=== PATIENT | male | born 1980 | race Two or more races ===

== ENCOUNTER 2022-02-12 13:02 | Inpatient (IN) | payer MEDICAID, OTHER ==
[~2022-02-12] VITALS: Ht 162.6 cm; Wt 65.1 kg
[2022-02-12 14:14] LABS: Basophils # (auto) 0 10 ^3/uL (0-0.2); Basophils % (auto) 0.6 % (0.0-2.0); Eosinophils # (auto) 0 10 ^3/uL (0-0.8); Eosinophils % (auto) 0.3 % (0.0-7.0); Hematocrit 51.6 % (41.0-53.0); Hemoglobin 17.2 g/dL (13.5-17.5); Lymphocytes # (auto) 0.8 10 ^3/uL (0.4-5.4); Lymphocytes % (auto) 13.9 % (10.0-50.0); Mean Corpuscular Hemoglobin 28.9 pg (28.0-32.0); Mean Corpuscular Hgb Conc. 33.5 g/dL (32.0-36.0); Mean Corpuscular Volume 86.4 fL (80.0-100.0); Monocytes # (auto) 0.7 10 ^3/uL (0-1.3); Monocytes % (auto) 11.6 % (0.0-12.0); Neutrophils # (auto) 4.3 10 ^3/uL (1.6-8.6); Neutrophils % (auto) 73.6 % (37.0-80.0); Nucleated Red Blood Cells % 0.1 %; Red Blood Cells 5.97 10^6/uL (4.5-5.90); Red Cell Distribution Width 13.3 % (11.8-14.3); White Blood Cell 5.8 10^3/uL (4.4-10.8)
[2022-02-12 14:21] LABS: INR 0.99 (0.9-1.15); Partial Thromboplastin Time 30.7 sec (23.6-33.0)
[2022-02-12 14:40] LABS: Albumin 4.1 g/dL (3.4-5.0); BUN/Creatinine Ratio 14.3; Calcium 9.2 mg/dL (8.5-10.1); Potassium 3.9 mmol/L (3.5-5.1)
[2022-02-12 14:43] LABS: Bilirubin, Total 0.3 mg/dL (0.2-1.0)
[2022-02-12] MEDS ORDERED: AZITHROMYCIN 500MG/ 250ML 250 ML IV ONE (17:15)
[2022-02-12] MEDS ORDERED: DexAMETHasone SOD PHOS 10MG/1ML VIAL INJ IV ONE (17:15)
[2022-02-12] MEDS ORDERED: MORPHINE SULFATE INJ 2 MG/ml SYRG IV PRN ×3 (18:30→22:15)
[2022-02-12] MEDS ORDERED: NITROGLYCERIN 0.4 MG SL TAB SL PRN (18:30)
[2022-02-12] MEDS ORDERED: ONDANSETRON HCL 4 MG/2 ML VIAL IV PRN ×2 (18:30→22:15)
[2022-02-12 21:36] LABS: Urine Bacteria NONE SEEN /hpf (None Seen); Urine Blood Negative /uL (Negative); Urine Specific Gravity 1.021 (1.001-1.035); Urine WBC <1 /hpf (0 - 3)
[2022-02-12] MEDS ORDERED: ALBUTEROL SULF 2.5 MG/0.5ML(0.5%) NEB SOLN NEB PRN (22:15)
[2022-02-12] MEDS ORDERED: PROMETHAZINE-DM 5 ML ORAL SYRUP PO PRN (22:15)
[2022-02-12] MEDS ORDERED: hydrALAZINE HCL 20 MG/ML VL IV PRN (22:15)
[2022-02-12] MEDS ORDERED: ACETAMINOPHEN 325 MG TAB PO PRN (22:15)
[2022-02-12] MEDS ORDERED: HYDROcodone-ACET 5/325MG TAB PO PRN (22:15)
[2022-02-12] MEDS ORDERED: LORazepam 0.5 MG TAB PO PRN (22:15)
[2022-02-12] MEDS ORDERED: DOCUSATE SOD 100 MG CAP PO PRN (22:15)
[2022-02-12] MEDS ORDERED: ALBUTEROL SULF HFA 90MCG INH 200DOSE IN PRN (22:30)
[2022-02-12] MEDS: SODIUM CHLORIDE 0.9% 1,000 ML IV SCH (22:37)
[2022-02-12 23:54] LABS: Magnesium 2.2 mg/dL (1.6-2.6); Phosphorus 1.4 mg/dL (2.5-4.90)
[2022-02-13 00:37] LABS: INR 1.02 (0.9-1.15); Partial Thromboplastin Time 31.1 sec (23.6-33.0)
[2022-02-13 01:43] VITALS: BP 114/79
[2022-02-13 04:11] LABS: Urine Bacteria NONE SEEN /hpf (None Seen); Urine Blood Negative /uL (Negative); Urine Specific Gravity 1.031 (1.001-1.035); Urine WBC 1 /hpf (0 - 3)
[2022-02-13 04:12] LABS: Alcohol, Urine < 3.0 mg/dL (0-10); Amphetamine Screen, Urine NEGATIVE (NEGATIVE); Barbiturate Scree,Urine NEGATIVE (NEGATIVE); Benzodiazephine Screen, Urine NEGATIVE (NEGATIVE); Cannabinoid Screen, Urine NEGATIVE (NEGATIVE); Cocaine Screen, Urine NEGATIVE (NEGATIVE); Opiate Scree,Urine NEGATIVE (NEGATIVE); Phencyclidine Screen, Urine NEGATIVE (NEGATIVE); Protein, Urine 43.4 mg/dL (0.0-11.9)
[2022-02-13] MEDS ORDERED: POTASSIUM PHOSPHATE 44 MEQ in D5W 5% 250 ML IV ONE (04:45)
[2022-02-13 05:00] VITALS: BP 105/67
[2022-02-13 07:03] LABS: Basophils # (auto) 0 10 ^3/uL (0-0.2); Basophils % (auto) 0.1 % (0.0-2.0); Eosinophils # (auto) 0 10 ^3/uL (0-0.8); Hematocrit 47.8 % (41.0-53.0); Hemoglobin 16.5 g/dL (13.5-17.5); Lymphocytes # (auto) 0.6 10 ^3/uL (0.4-5.4); Lymphocytes % (auto) 6.5 % (10.0-50.0); Mean Corpuscular Hemoglobin 30.1 pg (28.0-32.0); Mean Corpuscular Hgb Conc. 34.6 g/dL (32.0-36.0); Mean Corpuscular Volume 87.2 fL (80.0-100.0); Monocytes # (auto) 0.3 10 ^3/uL (0-1.3); Monocytes % (auto) 2.9 % (0.0-12.0); Neutrophils % (auto) 90.5 % (37.0-80.0); Nucleated Red Blood Cells % 0.1 %; Red Blood Cells 5.48 10^6/uL (4.5-5.90); Red Cell Distribution Width 13.2 % (11.8-14.3)
[2022-02-13 07:20] LABS: White Blood Cell 8.8 10^3/uL (4.4-10.8)
[2022-02-13 07:27] LABS: INR 1.01 (0.9-1.15); Partial Thromboplastin Time 30.5 sec (23.6-33.0)
[2022-02-13 08:57] LABS: Albumin 3.5 g/dL (3.4-5.0); BUN/Creatinine Ratio 21.3; Bilirubin, Total 0.6 mg/dL (0.2-1.0); CRP High Sensitivity 0.61 mg/dL (< 0.3); Calcium 8.7 mg/dL (8.5-10.1); Phosphorus 2.4 mg/dL (2.5-4.90); Potassium 4.1 mmol/L (3.5-5.1); Total Protein 7.5 g/dL (6.4-8.2); Uric Acid 6.6 mg/dL (3.5-7.2)
[2022-02-13 09:00] VITALS: BP 134/72
[2022-02-13] MEDS ORDERED: ENOXAPARIN SOD 40 MG/0.4 ML SYRINGE SC SCH (10:00)
[2022-02-13] MEDS ORDERED: FAMOTIDINE (10MG/ML) 2ML VL IV SCH (10:00)
[2022-02-13] MEDS ORDERED: CHOLECALCIFEROL (VITD3) 2,000 UNIT CAP/TAB PO SCH (10:00)
[2022-02-13] MEDS ORDERED: CHOL1CAP47 PO (10:44)
[2022-02-13 13:00] VITALS: BP 134/87
[2022-02-13] MEDS: SODIUM CHLORIDE 0.9% 1,000 ML IV SCH (14:55)
== END 2022-02-13 15:24 | disposition home or self-care (01) | DRG 137 ==
LOC: ER 13:02 → TELE 18:27 → TELE-EAST 23:55
PROVIDERS: ADMIT Hospitalist; ATTEND Internal Medicine Pulmonary Disease
DX: U07.1 COVID-19 (principal); E83.39 Other disorders of phosphorus metabolism; E78.5 Hyperlipidemia, unspecified; I10 Essential (primary) hypertension; Z79.899 Other long term (current) drug therapy
CPT/HCPCS: 36415; 71045; 80053; 80061; 80307; 81001; 82550; 82728; 83036; 83615; 83690; 83735; 83880; 84100; 84156; 84300; 84439; 84443; 84484; 84550; 85025; 85379; 85610; 85652; 85730; 86141; 87040; 87086; 93005; 96365; 96375; G0378; J1100; J7060